=== PATIENT | male | born 1970 | race Caucasian/White ===

== ENCOUNTER 2019-05-04 14:17 | Emergency (ER) | payer SELFPAY ==
[~2019-05-04] VITALS: Ht 172.7 cm; Wt 94.3 kg
[2019-05-04 14:24] VITALS: BP 130/88
--- NOTE | 2019-05-04 14:36 | NUR ---
PATIENT PRESENTS TO ED WITH C/O LACERATION TO LT 4TH FINGER. PT STATES IT HAPPENED APPROX 30 MINUTES AGO WHILE HE WAS FIXING HIS CAR.DENIES N/V/; PATIENT STATES PAIN OF 6/10 AT THIS TIME; VSS; PATIENT POSITIONED FOR COMFORT; HOB ELEVATED; BEDRAILS UP X1; BED DOWN. ER MD TO EVALUATE PT.
[2019-05-04] MEDS ORDERED: LIDOCAINE 1% 500 MG/50 ML VIAL INJ SCH (14:50)
[2019-05-04] MEDS ORDERED: HYDROcodone/APAP 5/325 MG 1 TAB TAB PO ONE (14:50)
--- NOTE | 2019-05-04 14:58 | NUR ---
x ray at bedside.
[2019-05-04] MEDS ORDERED: LIDOCAINE MPF 1% - 5 mL VIAL 5 ML ONE ×2 (15:04→16:31)
[2019-05-04] MEDS ORDERED: ceFAZolin 1,000 MG VIAL IM ONE (15:10)
[2019-05-04] MEDS ORDERED: WATER STERILE 10 ML MC ONE (15:38)
--- NOTE | 2019-05-04 17:55 | NUR ---
JOJO Atkins applied sutures using sterile technique. Edges well approximated. Site cleansed. No active bleeding noted. Pt tolerated well.
[2019-05-04 18:17] VITALS: BP 128/80
--- NOTE | 2019-05-04 18:18 | NUR ---
Patient discharged with v/s stable. Written and verbal after care instructions given and explained. Patient alert, oriented and verbalized understanding of instructions. Ambulatory with steady gait. All questions addressed prior to discharge. ID band removed. Patient advised to follow up with PMD. Rx of Chestnut, Motrin, Keflex and Bacitracin ointment given. Patient educated on indication of medication including possible reaction and side effects. Opportunity to ask questions provided and answered.
== END 2019-05-04 18:18 | disposition home or self-care (01) ==
LOC: MED 14:17
DX: S61.215A Laceration without foreign body of left ring finger without damage to nail, initial encounter (principal); R03.0 Elevated blood-pressure reading, without diagnosis of hypertension; W22.8XXA Striking against or struck by other objects, initial encounter; Y93.89 Activity, other specified; Y92.89 Other specified places as the place of occurrence of the external cause; Y99.8 Other external cause status
CPT/HCPCS: 12002; 73140; 90471; 90715; 96372; 99283; J0690; J2001; Q0092

== ENCOUNTER 2019-05-07 10:25 | Emergency (ER) | payer MEDICAID ==
[~2019-05-07] VITALS: Ht 172.7 cm; Wt 94.3 kg
[2019-05-07 10:27] VITALS: BP 137/89
--- NOTE | 2019-05-07 10:30 | NUR ---
PT BIB BY SELF FOR follow up with suture on left fourth digitis.DR. PEACE AT BEDSIDE EVALUATING PT. hx: none tx: none
--- NOTE | 2019-05-07 10:42 | NUR ---
Dr. Ballard evaluating patient at bedside.
[2019-05-07 10:54] VITALS: BP 137/89
--- NOTE | 2019-05-07 10:54 | NUR ---
Patient discharged with v/s stable. Written and verbal after care instructions given and explained. Patient alert, oriented and verbalized understanding of instructions. Ambulatory with steady gait. All questions addressed prior to discharge. ID band removed. Patient advised to follow up with PMD. Opportunity to ask questions provided and answered.
== END 2019-05-07 10:54 | disposition home or self-care (01) ==
LOC: MED 10:25
DX: S61.215D Laceration without foreign body of left ring finger without damage to nail, subsequent encounter (principal); X58.XXXD Exposure to other specified factors, subsequent encounter
CPT/HCPCS: 99281